=== PATIENT | female | born 1975 | race Caucasian/White ===

== ENCOUNTER 2024-01-15 08:26 | Outpatient (AMB) | payer OTHER, SELFPAY ==
--- NOTE | 2024-01-15 08:28 | A.OFFVIS_ITS ---
Vital Signs 01/15/24 08:33 Height 5 ft 7 in Weight 152 lb 1.903 oz BMI 23.8 BP 132/80 Blood Pressure Location Rt brachial Position Sitting Pulse 78 Pulse Source Pulse Oximeter Pulse Oximetry (%) 93 Oxygen Delivery Method Room Air Intake Visit Reasons: + SAFIA Intake Note: New patient presents today for +SAFIA consult, referred by PCP Chronic hives, reports Ibuprofen helps with the hives Symptoms started approx 4yrs ago, during the pandemic Has tried eliminating certain foods and ibuprofen Patient has never seen a rheumagologist. Dredging Inspector Required: No Accompanied by: Self / Same As Patient Allergies No Known Allergies Allergy (Verified 01/15/24 08:34) Medication List - Last Reconciled 01/15/24 by Johny Juarez MD cholecalciferol (vitamin D3) 10 mcg PO DAILY magnesium 200 mg PO DAILY HPI Comments Details: This is a 48-year-old female who presents for evaluation of positive SAFIA. Patient stated that in her teens to the hospital twice for evaluation of a severe allergic reaction. She had swelling of her mouth and tongue, she did not get intubated but needed IV medications. She stated that she found to have elevated wheat levels she was avoiding gluten. She does not have a diagnosis of gluten sensitivity or celiac disease. 2-3 years ago, she [place] in the mall and she ate tamponade as and developed an allergic rash on forearms. The rashes were itchy they heal in a few days without scarring She eventually went to urgent care and was prescribed prednisone. With relief. She states that about once a month she gets 1 of those episodes. The rashes are not photosensitive. She has not been evaluated by cytotechnologist/cytology supervisor. She denies any family history of autoimmune rheumatic disease. Denies any history of DVT/PE. Patient had 3 pregnancies, 2 live births and 1 miscarriage. Denies any fevers or weight loss. She states that she is generally pretty healthy. Denies any swollen joints. Denies any morning stiffness. She states that her hair thinning but denies any significant hair loss. Denies any mouth ulcers, no blood or frothy urine. [facility], [facility] Medical History (Updated 01/15/24 @ 09:19 by Johny Juarez MD) Chronic urticaria SAFIA positive Surgical History Hx of knee surgery Hx of section Family History Mother Diabetes Arthritis Father Coronary artery disease Alcohol abuse Stroke Social History Alcohol intake: former Patient Tobacco Use Status: Never used Tobacco Current occupational status: employed Current occupation: realtor Female Reproductive History Menstrual Total pregnancies: 3 Full term: 2 Ab spontaneous: 1 Review of Systems Const Denies body aches, Denies fever(s), Denies weakness and Denies weight loss Musc Denies joint swelling and Denies stiffness Skin/Breast Reports alopecia, Reports pruritus, Reports lesions and Reports rash Neuro Denies weakness Physical Exam Vital Signs: Last Vital Signs Pulse 78 01/15/24 08:33 BP 132/80 01/15/24 08:33 Pulse Ox 93 01/15/24 08:33 Oxygen Delivery Method Room Air 01/15/24 08:33 BMI result Body Mass Index 23.8 Const General: cooperative, healthy appearing and comfortable Nutritional Appearance: average body habitus Orientation/consciousness: patient oriented x3 Limitations: no limitations HEENT Head: Yes normocephalic and Yes atraumatic Mouth: moist mucous membranes Resp Effort & Inspection: normal respiratory effort and able to speak in complete sentences Auscultation: clear to auscultation bilaterally Cardio Rate: regular rate Rhythm: regular rhythm Skin Other: No rashes noted on exam but patient showed me pictures of her rashes which looked like urticaria on her arms and forearms General skin exam: no rashes or lesions noted Neuro General: patient oriented x3 Extrem Other: No active synovitis Normal nailfold capillaroscopy Assessment & Plan Assessment & Plan (1) SAFIA positive: Code(s): R76.8 - Other specified abnormal immunological findings in serum Category: Medical Plan: This is a 48 year old female who presents for evaluation of positive SAFIA in the setting of urticaria. History of severe allergic reaction as a teen requiring hospital admission without intubation. Patient showed me her labs which showed a positive SAFIA without a titer or pattern. However upon evaluation I do not see any evidence of an underlying autoimmune rheumatic disease. Advised patient to follow-up with an cytotechnologist/cytology supervisor. Follow-up with me as needed Plan I spent 30 minutes reviewing patient's chart, evaluating patient, counseling patient and documenting in the chart Coding Level of Care Code New Pt Level 3 (75018) Diagnoses SAFIA positive R76.8
[2024-01-15 08:33] VITALS: BP 132/80; PULSE 78; O2SAT 93; BMI 23.8
== END 2024-01-15 09:37 | disposition home or self-care (01) ==
PROVIDERS: PCP Nurse Practitioner Family; Visit Provider Student in an Organized Health Care Education/Training Program
DX: R76.8 Other specified abnormal immunological findings in serum (principal)
CPT/HCPCS: 99203

== ENCOUNTER → 2024-01-15 08:26 | Outpatient (BNVA) | payer OTHER, SELFPAY | PROVIDERS: PCP Nurse Practitioner Family; Visit Provider Student in an Organized Health Care Education/Training Program | DX: R76.8 Other specified abnormal immunological findings in serum (principal) | CPT/HCPCS: 99202 ==